=== PATIENT | female | born 1960 | race Caucasian/White ===

== ENCOUNTER → 2017-12-20 08:00 | Outpatient (CLI) | payer MEDICARE | END | disposition home or self-care (01) | LOC: D.MAMMO 08:00 | DX: Z12.31 Encounter for screening mammogram for malignant neoplasm of breast (principal) ==

== ENCOUNTER 2018-02-21 15:24 | Emergency (ER) | payer MEDICARE ==
[~2018-02-21] VITALS: Ht 162.6 cm; Wt 57.3 kg
[2018-02-21 15:30] VITALS: Ht 162.6 cm; Wt 57.3 kg
[2018-02-21] MEDS ORDERED: PRINIVIL20 MG PO (15:33)
[2018-02-21] MEDS ORDERED: CYMBALTA30 MG PO (15:33)
[2018-02-21] MEDS ORDERED: SEROQUEL400 MG PO (15:33)
[2018-02-21] MEDS ORDERED: LAMICTAL100 MG PO (15:33)
[2018-02-21] MEDS ORDERED: FISH OIL 1,0001 CA1 PO (15:34)
[2018-02-21] MEDS ORDERED: KLONOPIN0.5 MG PO (15:34)
[2018-02-21] MEDS ORDERED: PRAVACHOL40 MG PO (15:34)
[2018-02-21] MEDS ORDERED: ADCIRCA20 MG PO (15:35)
[2018-02-21] MEDS ORDERED: DESERYL100 MG PO (15:35)
[2018-02-21] MEDS ORDERED: ALENDRONATE SOD70 MG PO (15:36)
[2018-02-21] MEDS ORDERED: PRISTIQ100 MG PO (15:36)
[2018-02-21] MEDS ORDERED: LEXAPRO10 MG (15:36)
[2018-02-21] MEDS ORDERED: SYMBICORT 16010.2 GM INH (15:37)
[2018-02-21] MEDS ORDERED: VENTOLIN HFA18 GM INH (15:37)
[2018-02-21] MEDS ORDERED: SYNTHROID50 MCG PO (15:38)
[2018-02-21] MEDS ORDERED: ZETIA10 MG PO (15:38)
[2018-02-21] MEDS ORDERED: PEPCID20 MG PO (15:38)
[2018-02-21 16:10] LABS: BASOPHILS 0 % (0-2); EOSINOPHILS 0.6 % (0-7); HEMATOCRIT 36.7 % (36.0-48.0); HEMOGLOBIN 12.2 g/dL (12-16); IMMATURE GRANULOCYTES 0.3 % (0-5); LYMPHOCYTES 28.9 % (15-50); MCH 31.4 pg (26.0-34.0); MCHC 33.2 g/dL (31.0-37.0); MCV 94.6 fL (80.0-100.0); MEAN PLATELET VOLUME 9.5 fL (7.4-10.4); MONOCYTES 11.1 % (2-11); NEUTROPHILS 59.1 % (40-80); PLATELET COUNT 160 10x3/uL (130-400); RBC 3.88 10x6/uL (4.00-5.40); RDW 17.2 % (11.5-14.5); WBC 3.3 10x3/uL (4.8-10.8)
[2018-02-21 16:22] LABS: ALBUMIN 3.6 g/dL (3.4-5.0); ANION GAP 9.6 mmol/L (8-16); BILIRUBIN - TOTAL 0.41 mg/dL (0.2-1.3); CALCIUM 8.7 mg/dL (8.5-10.1); CARBON DIOXIDE 26.8 mmol/L (21.0-32.0); CREATININE - SERUM 1.2 mg/dL (0.6-1.3); POTASSIUM - SERUM 3.4 mmol/L (3.5-5.1); PROTEIN - SERUM 7.3 g/dL (6.4-8.2)
[2018-02-21 17:50] LABS: APPEARANCE CLEAR (CLEAR); BILIRUBIN NEGATIVE (NEGATIVE); COLOR YELLOW (YELLOW); GLUCOSE NEGATIVE (NEGATIVE); KETONE NEGATIVE (NEGATIVE); NITRITE NEGATIVE (NEGATIVE); PROTEIN TRACE mg/dL (NEGATIVE); SPECIFIC GRAVITY 1.025 (1.005-1.020); UROBILINOGEN NORMAL (NORMAL)
[2018-02-21 17:51] LABS: RED CELLS - URINE OCC /hpf (0-5); WHITE CELLS - URINE 0-5 /hpf (0-5)
[2018-02-21 17:52] LABS: BACTERIA MODERATE /hpf (NONE SEEN); EPITHELIAL CELLS OCC /hpf (0-5)
[2018-02-21 19:29] VITALS: BP 150/69
== END 2018-02-21 19:29 | disposition home or self-care (01) ==
LOC: D.ER 15:24
PROVIDERS: Family Medicine
DX: M48.02 Spinal stenosis, cervical region (principal); M79.662 Pain in left lower leg; M79.661 Pain in right lower leg; F17.200 Nicotine dependence, unspecified, uncomplicated; I10 Essential (primary) hypertension; J44.9 Chronic obstructive pulmonary disease, unspecified